=== PATIENT | female | born 1975 | race Hispanic/Latino ===

== ENCOUNTER → 2017-12-08 | Day surgery (SDC) | payer BC ==
[~2017-12-08] MED LIST: ADVAIR 500/501 EA INH; ALBUTEROL SULF8.5 GM INH; CETIRIZINE HCL10 MG PO; CLARITIN10 MG PO; CYCLOBENZAPRINE10 MG PO; FENTANYL CITRATE/PF 100MCG/2 ML INJ ONE; FLECTOR1 EACH TOP; FLONASE; GABAPENTIN100 MG PO; HYOSCYAMINE SULFATE 0.5 MG/ML AMP ONE; IBUPROFEN PO; MIDAZOLAM HCL 2 MG/2 ML VIAL ONE; PROPOFOL IV EMULSION 10 MG/ML 50 ML VIAL ONE; PROTONIX40 MG PO; RANITIDINE HCL150 MG PO; SUCRALFATE1 GM PO; SYMBICORT INH; TIZANIDINE HCL4 MG PO; ULTRAM50 MG PO; VENTOLIN HFA18 GM INH; VIT B12 SL; VIT C PO; ZOFRAN8 MG PO; [UNRECOGNIZED DRUG - OTHER] PO
--- NOTE | 2017-12-08 14:31 | Operative Report ---
DATE OF PROCEDURE: December 08, 2017 REFERRING PHYSICIAN: NU Colvin PROCEDURE PERFORMED: 1. Esophagogastroduodenoscopy with esophageal dilatation and polypectomy. 2. Colonoscopy with polypectomy and biopsies. INDICATIONS FOR ESOPHAGOGASTRODUODENOSCOPY: Upper abdominal pain, dysphagia, heartburn indigestion. INDICATIONS FOR COLONOSCOPY: Colorectal cancer screening. Father with colon cancer. Personal history of colon polyps, lower abdominal pain. MEDICATION: Patient was done under MAC. Please see anesthesiologist's note. PROCEDURE: With the patient in the left lateral decubitus position, the flexible fiberoptic Olympus gastroscope was introduced into the esophagus under direct visualization without any difficulty. There was some patchy erythema noted in the distal esophagus. There was a mild stricture noted at the GE junction, and that was dilated to a size 52-[place]. The scope was then advanced with ease into the stomach, and mucosa overlying the antrum and the body revealed some patchy erythema and low-grade to moderate edema, and biopsies were obtained and sent to stain for H. pylori. Numerous polyps, hyperplastic-appearing, were noted in the body of the stomach, and multiple were removed per cold polypectomy snare. The pylorus was of normal contour and shape, was intubated with ease, and the scope was advanced all the way to the 2nd portion of the duodenum. The scope was then withdrawn slowly. Mucosa overlying the proximal 2nd portion and the duodenal bulb appeared to be within normal limits. The scope was then withdrawn back into the stomach and retroflexed, and the mucosa overlying the fundus and the cardia appeared to be within normal limits. The scope was then straightened out. The stomach was decompressed. The scope was subsequently withdrawn. Patient tolerated the procedure well. IMPRESSION: 1. Distal esophagitis. 2. Esophageal stricture at gastroesophageal junction dilated to size 52-[place]. 3. Gastritis biopsied. Biopsies sent to stain for H. pylori. 4. Gastric polyps, numerous, multiple removed per cold snare polypectomy. PLAN: Follow up histology. Start Dexilant 60 mg 1 p.o. q.a.m. a.c. and Zantac 300 mg 1 p.o. nightly. Patient was then turned around and after adequate lubrication of the anal canal, a flexible fiberoptic Olympus colonoscope was inserted into the rectum with ease and advanced all the way to the cecum. It was then withdrawn slowly. Mucosa overlying the cecum, ascending colon and transverse colon grossly appeared to be within normal limits. There were some patchy areas of erythema and low-grade edema noted in the descending and proximal sigmoid, and biopsies were obtained. Three minute polyps were noted in the descending colon. Those were removed per hot biopsy forceps. The scope was then retroflexed into the distal rectum and small internal hemorrhoids were noted, none of which was actively bleeding. The scope was then straightened out. The rectosigmoid area as well as the distal rectal area were decompressed. The scope was subsequently withdrawn. Patient tolerated the procedure well. IMPRESSION: 1. Patchy mild segmental colitis left colon. 2. Descending colon polyps x3 hot biopsied. 3. Internal hemorrhoids, none actively bleeding. PLAN: Follow up histology. Initiate VSL#3 DS one p.o. b.i.d. Patient might benefit from a followup colonoscopy in 3 years. Job#: [id number] EV cc:NU COLVIN
== END | disposition home or self-care (01) ==
LOC: OR 11-29 09:41 → MERGE 08:30 → OR 09:34
PROVIDERS: ATTEND Internal Medicine Gastroenterology
DX: K29.70 Gastritis, unspecified, without bleeding (principal); K63.5 Polyp of colon; K31.7 Polyp of stomach and duodenum; K22.2 Esophageal obstruction; K50.10 Crohn's disease of large intestine without complications; K20.9 Esophagitis, unspecified; K21.9 Gastro-esophageal reflux disease without esophagitis; K64.8 Other hemorrhoids; J45.909 Unspecified asthma, uncomplicated; Z91.041 Radiographic dye allergy status; Z68.32 Body mass index [BMI] 32.0-32.9, adult; Z80.0 Family history of malignant neoplasm of digestive organs
CPT/HCPCS: 43251; 43450; 45380; 45384; J1980; J2250; 43239

== ENCOUNTER 2018-01-16 09:49 | Emergency (ER) | payer BC ==
[~2018-01-16] VITALS: Ht 160 cm; Wt 81.6 kg
[~2018-01-16 09:49] MED LIST changes: -FENTANYL CITRATE/PF 100MCG/2 ML INJ ONE; -HYOSCYAMINE SULFATE 0.5 MG/ML AMP ONE; -MIDAZOLAM HCL 2 MG/2 ML VIAL ONE; -PROPOFOL IV EMULSION 10 MG/ML 50 ML VIAL ONE
[2018-01-16] MEDS ORDERED: MORPHINE SULFATE 2 MG/ML SYR IM STA (10:09)
[2018-01-16] MEDS ORDERED: ONDANSETRON HCL 4 MG ORAL DISINTEGRATING TAB PO ONE (10:15)
[2018-01-16] MEDS ORDERED: DIAZEPAM 5 MG TAB PO SCH (10:15)
[2018-01-16 10:51] VITALS: BP 124/84
== END 2018-01-16 11:00 | disposition home or self-care (01) ==
LOC: ER 09:49
DX: M54.2 Cervicalgia (principal); S16.1XXA Strain of muscle, fascia and tendon at neck level, initial encounter; M50.80 Other cervical disc disorders, unspecified cervical region
CPT/HCPCS: 99283; J2270

== ENCOUNTER → 2020-10-23 | Day surgery (SDC) | payer OTHER ==
[~2020-10-23] MED LIST changes: +FENTANYL CITRATE/PF 100MCG/2 ML INJ ONE; +HYOSCYAMINE SULFATE 0.5 MG/ML INJ ONE; +LIDOCAINE HCL 2% LOCAL INJ 5 ML SDV VIAL INJ ONE; +MIDAZOLAM HCL 2 MG/2 ML VIAL ONE; +NEXIUM40 MG PO; +PROPOFOL IV EMULSION 10 MG/ML 20 ML VIAL ONE; +SERTRALINE HCL100 MG PO
[2020-10-23 10:55] VITALS: BP 139/84
== END | disposition home or self-care (01) ==
LOC: OR 05:48
PROVIDERS: ATTEND Internal Medicine Gastroenterology
DX: K22.2 Esophageal obstruction (principal); K63.5 Polyp of colon; K31.7 Polyp of stomach and duodenum; K29.60 Other gastritis without bleeding; K20.90 Esophagitis, unspecified without bleeding; K21.9 Gastro-esophageal reflux disease without esophagitis; K59.04 Chronic idiopathic constipation; R05 Cough; K64.8 Other hemorrhoids; J45.909 Unspecified asthma, uncomplicated; F41.9 Anxiety disorder, unspecified; F32.9 Major depressive disorder, single episode, unspecified; Z91.041 Radiographic dye allergy status; Z01.812 Encounter for preprocedural laboratory examination; Z20.822 Contact with and (suspected) exposure to COVID-19; Z68.31 Body mass index [BMI] 31.0-31.9, adult; Z80.0 Family history of malignant neoplasm of digestive organs
CPT/HCPCS: 43239; 43450; 45380; J1980; J2001; J2250; J2704; J3010; U0002; 45378; 45384

== ENCOUNTER → 2022-05-21 | Day surgery (SDC) | payer MEDICARE ==
[~2022-05-21] MED LIST changes: +EPI PEN SQ; +HYDROCHLOROTHIA25 MG PO; -HYOSCYAMINE SULFATE 0.5 MG/ML INJ ONE; +METOCLOPRAMIDE HCL 10 MG/2ML VIAL ONE; -MIDAZOLAM HCL 2 MG/2 ML VIAL ONE; +PHENTERMINE H37.5 MG PO; +PROPOFOL IV EMULSION 10 MG/ML 50 ML VIAL IV ONE
[2022-05-21 12:30] VITALS: BP 129/79
[2022-05-25 12:13] LABS: ENDOMYSIAL ANTIBODIES, IGA Negative (Negative)
== END | disposition home or self-care (01) ==
LOC: OR 08:45
PROVIDERS: ATTEND Internal Medicine Gastroenterology
DX: K52.9 Noninfective gastroenteritis and colitis, unspecified (principal); K63.5 Polyp of colon; K31.7 Polyp of stomach and duodenum; K29.60 Other gastritis without bleeding; K20.90 Esophagitis, unspecified without bleeding; K21.9 Gastro-esophageal reflux disease without esophagitis; K59.00 Constipation, unspecified; K62.89 Other specified diseases of anus and rectum; K64.8 Other hemorrhoids; Z71.3 Dietary counseling and surveillance; J45.909 Unspecified asthma, uncomplicated; R06.83 Snoring; F32.A Depression, unspecified; F41.9 Anxiety disorder, unspecified; Z88.6 Allergy status to analgesic agent; Z88.8 Allergy status to other drugs, medicaments and biological substances; Z91.041 Radiographic dye allergy status; Z79.899 Other long term (current) drug therapy; Z68.30 Body mass index [BMI] 30.0-30.9, adult; Z86.16 Personal history of COVID-19; Z80.0 Family history of malignant neoplasm of digestive organs
CPT/HCPCS: 43239; 43450; 45380; 82784; 83516; 86256; C9113; J2001; J2704 ×2; J2765; 45378; J3010

== ENCOUNTER → 2024-12-14 | Day surgery (SDC) | payer MEDICARE ==
[2024-12-04 08:22] LABS: BASOPHILS % 0.3 % (0.0-1.0); EOSINOPHILS # (AUTO) 0.2 (0.0-0.4); EOSINOPHILS % 2.5 % (0.0-6.0); HEMATOCRIT 44.7 % (34.2-44.1); HEMOGLOBIN 14.5 g/dL (12.0-16.0); LYMPHOCYTES # (AUTO) 2.6 (1.0-3.2); MEAN CORPUSCULAR HEMOGLOBIN 32.7 pg (28-32); MEAN CORPUSCULAR HGB CONC 32.4 g/dL (31-35); MEAN CORPUSCULAR VOLUME 100.9 fL (81-99); MONOCYTES # (AUTO) 0.6 (0.2-0.8); MONOCYTES % 8.6 % (4.4-11.3); NEUTROPHILS # (AUTO) 3.3 (2.1-6.9); NEUTROPHILS % 49.5 % (38.7-80.0); PLATELET COUNT 176 x10e3/uL (140-360); RED BLOOD COUNT 4.43 x10e6/uL (3.6-5.1); RED CELL DISTRIBUTION WIDTH 13.1 % (11.7-14.4); WHITE BLOOD COUNT 6.72 x10e3/uL (4.8-10.8)
[~2024-12-14] MED LIST changes: +AIRBORNE CHEWA1 EACH; +CIMZIA; +D3-5000125 MCG; -FENTANYL CITRATE/PF 100MCG/2 ML INJ ONE; +GLUCAGON FOR INJ 1 MG VIAL ONE; +HYDROCODON-ACE1 EA11 PO; +HYDROXYZINE HCL25 MG PO; +HYOSCYAMINE SULFATE 0.5 MG/ML INJ ONE; +LACTATED RINGER'S 1,000 ML ONE; +LEVOCETIRIZINE D5 MG; -LIDOCAINE HCL 2% LOCAL INJ 5 ML SDV VIAL INJ ONE; +LINZESS145 MCG; -METOCLOPRAMIDE HCL 10 MG/2ML VIAL ONE; +MIDAZOLAM HCL 2 MG/2 ML VIAL ONE; +MULTI-VITAMIN1 EACH PO; +PANTOPRAZOLE SO40 MG PO; -PROPOFOL IV EMULSION 10 MG/ML 50 ML VIAL IV ONE; +TRIAMCINOLONE A15 G1 TOP
[2024-12-14 12:40] VITALS: TEMP 97.4
[2024-12-14 13:00] VITALS: BP 117/83; PULSE 81; RESP 18; O2SAT 99
== END | disposition home or self-care (01) ==
LOC: OR 08:42
PROVIDERS: ATTEND Internal Medicine Gastroenterology
DX: K29.50 Unspecified chronic gastritis without bleeding (principal); K63.5 Polyp of colon; K31.7 Polyp of stomach and duodenum; K22.2 Esophageal obstruction; K31.89 Other diseases of stomach and duodenum; K20.90 Esophagitis, unspecified without bleeding; K59.04 Chronic idiopathic constipation; K58.9 Irritable bowel syndrome, unspecified; K64.8 Other hemorrhoids; D72.820 Lymphocytosis (symptomatic); Z71.89 Other specified counseling; R00.1 Bradycardia, unspecified; J45.909 Unspecified asthma, uncomplicated; M26.609 Unspecified temporomandibular joint disorder, unspecified side; L40.50 Arthropathic psoriasis, unspecified; G89.29 Other chronic pain; F43.10 Post-traumatic stress disorder, unspecified; F41.9 Anxiety disorder, unspecified; F32.A Depression, unspecified; Z88.8 Allergy status to other drugs, medicaments and biological substances; Z88.6 Allergy status to analgesic agent; Z91.041 Radiographic dye allergy status; Z01.810 Encounter for preprocedural cardiovascular examination; Z01.812 Encounter for preprocedural laboratory examination; Z68.30 Body mass index [BMI] 30.0-30.9, adult; Z71.3 Dietary counseling and surveillance; Z80.0 Family history of malignant neoplasm of digestive organs
CPT/HCPCS: 36415; 43239; 43450; 45380; 85025; 93005; J1610; J1980; J2250; J2470; J2704; J7121; 43251; 45378

== ENCOUNTER → 2025-03-15 | Day surgery (SDC) | payer MEDICARE ==
[~2025-03-15] MED LIST changes: +DULOXETINE HCL30 MG PO; -GLUCAGON FOR INJ 1 MG VIAL ONE; +LIDOCAINE HCL 2% LOCAL INJ 5 ML SDV VIAL INJ ONE; +MECLIZINE HCL12.5 MG PO; +PROTONIX20 MG PO; +TYLENOL ARTHRITIS PO
[2025-03-15 08:28] VITALS: TEMP 97.3
[2025-03-15 08:55] VITALS: BP 135/89; PULSE 71; RESP 15; O2SAT 99
== END | disposition home or self-care (01) ==
LOC: OR 06:24
PROVIDERS: ATTEND Internal Medicine Gastroenterology
DX: Z09 Encounter for follow-up examination after completed treatment for conditions other than malignant neoplasm (principal); K63.5 Polyp of colon; Z80.0 Family history of malignant neoplasm of digestive organs; K64.8 Other hemorrhoids; K62.89 Other specified diseases of anus and rectum; K59.09 Other constipation; K62.5 Hemorrhage of anus and rectum; K21.9 Gastro-esophageal reflux disease without esophagitis; J45.909 Unspecified asthma, uncomplicated; F43.10 Post-traumatic stress disorder, unspecified; F41.9 Anxiety disorder, unspecified; E66.01 Morbid (severe) obesity due to excess calories; Z71.3 Dietary counseling and surveillance; Z68.30 Body mass index [BMI] 30.0-30.9, adult; Z79.899 Other long term (current) drug therapy
CPT/HCPCS: 45385; 93005; J1980; J2003; J2250; J2704; J7121